=== PATIENT | female | born 1990 | race Caucasian/White ===

== ENCOUNTER 2017-07-24 08:47 | Emergency (ER) | payer OTHER ==
[~2017-07-24] VITALS: Ht 165.1 cm; Wt 81.6 kg
[~2017-07-24 08:47] MED LIST: BACTRIM DS 8001 TAB PO; FLINTSTONES1 CTB PO; HYDROCODONE1 TABLE1 PO; LABETALOL100 MG OR; LORTAB 5/500 501 TAB PO; LORTAB 500 MG-11 TAB PO; ORTHO TRI-CYCLE1 TAB; PERCOCET 10 MG1 EACH PO; PERCOCET 5/3251 EACH PO; Prilosec20 MG PO; SEPTRA DS 800 M1 TAB PO
[2017-07-24] MEDS ORDERED: SUPER B-50 COM1 EACH PO (09:03)
[2017-07-24] MEDS ORDERED: FOLBIC RF1 TAB PO (09:04)
[2017-07-24] MEDS ORDERED: MAG-OX 400MG T400 MG PO (09:04)
[2017-07-24] MEDS ORDERED: LABETALOL 100M100 M1 FT (09:05)
[2017-07-24] MEDS ORDERED: PROZAC 20MG CAP20 MG PO (09:06)
[2017-07-24] MEDS ORDERED: MAXALT10 MG PO (09:07)
[2017-07-24] MEDS ORDERED: TRAMADOL 50MG T50 M1 PO (09:07)
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
[2017-07-24 10:02] VITALS: BP 137/76
== END 2017-07-24 10:03 | disposition home or self-care (01) ==
LOC: ER 08:47
DX: G43.001 Migraine without aura, not intractable, with status migrainosus (principal); I10 Essential (primary) hypertension; Z79.899 Other long term (current) drug therapy